=== PATIENT | female | born 1985 | race Caucasian/White ===

== ENCOUNTER 2025-02-15 10:17 | Emergency (ER) | payer OTHER, SELFPAY ==
[2025-02-15 10:22] VITALS: BP 109/69; PULSE 112; RESP 19; TEMP 36.8; O2SAT 98; BMI 21.6
[2025-02-15 11:29] LABS: IDNOW Serial# 55D5AD1C; Strep A Nucleic Acid Negative (Negative)
[2025-02-15 11:33] LABS: Influenza A PCR NEGATIVE (Negative); Influenza B PCR NEGATIVE (Negative); Resp Syncy Virus RNA Qual PCR NEGATIVE (Negative); SARS COV2 PCR INHOUSE NEGATIVE (Negative)
[2025-02-15 12:32] VITALS: BP 119/83; PULSE 94; RESP 19; O2SAT 99
--- NOTE | 2025-02-15 12:34 | ED_ITS ---
HPI - General Adult General Chief complaint: General Medical Stated complaint: sore throat Time Seen by Provider: 02/15/25 12:30 Source: patient, RN notes reviewed and old records reviewed Mode of arrival: ambulatory History of Present Illness ED Provider: Basilia Clark PA-C HPI narrative: 39-year-old female no significant past medical history presenting to the ED complaining of sore throat x2 days. Reports painful swallowing. Denies fever, chills, ear pain, sick contacts, travel Related Data Allergies Allergy/AdvReac Type Severity Reaction Status Date / Time morphine [MORPHINE] Allergy Unknown HIVES Verified 02/15/25 10:23 oxcarbazepine Allergy Unknown HIVES Verified 02/15/25 10:23 [From TRILEPTAL] Review of Systems Review of Systems: Yes all other systems are reviewed and are negative Constitutional: Constitutional: Reports as per [facility] Past Medical History Attestation statement: The following information was validated with the patient. Source: old records reviewed Social History Social History Advance Directives: Yes Advance Directives Information Provided: Yes Advance Directives on File: No Do you have a plan to hurt others: No Plan Physical Exam ED Vital Signs: Vital Signs - 24 hr 02/15/25 10:22 02/15/25 12:32 Temperature 98.3 F Pulse Rate 112 H 94 Respiratory Rate 19 19 Blood Pressure 109/69 119/83 Pulse Oximetry 98 99 Oxygen Delivery Method Room Air BMI result Body Mass Index 21.6 Const General: cooperative, healthy appearing and no acute distress Orientation/consciousness: patient oriented x3 Limitations: no limitations HENMT Head: Yes normal to inspection and Yes atraumatic Ears: hearing grossly normal bilaterally, external ears normal, TM's normal bilaterally and mastoids normal General nose exam: Normal external nose present Face and sinus: Yes normal facial exam Mouth: Normal oral and palatal mucosa present and no drooling Throat: Yes tonsils normal, Yes uvula midline, No peritonsillar mass, Yes posterior oropharynx abnormal (erythematous), No uvula laterally displaced and No uvular edema Eyes General: appearance normal, both eyes and all related structures EOM: EOMs intact bilaterally Neck Neck: Yes normal visual inspection and Yes no meningeal signs Resp Effort & Inspection: normal respiratory effort, no respiratory distress and no stridor Auscultation: no crackles, no rales and no wheezes Cardio Rate: regular rate Skin Rashes: no rashes Wounds: no wounds Neuro General: patient oriented x3, tone normal and no meningeal signs Cranial nerves: Yes CN's II-XII intact bilaterally Gait exam (Neuro): Normal gait present Extrem General: Yes normal to inspection Course Course Course Narrative: -COVID/flu/RSV and rapid strep negative Results discussed with patient including worrisome signs and symptoms and strict return precautions, and when to return to the emergency department. They verbalized understanding and feel safe for discharge at this time. Medical Decision Making Medical Decision Making MDM Narrative: 39-year-old female no significant past medical history presenting to the ED complaining of sore throat x2 days. On exam vital signs stable, NAD, nontoxic appearing, physical exam as noted above with mild posterior oropharyngeal erythema. Uvula midline, no tonsillar swelling/exudates. Talking in complete sentences, handling secretions, no drooling no evidence of [employer]CH[employer]/retropharyngeal abscess. Plan: Rapid strep, viral testing Please refer to course for remaining clinical decision making, interpretation of labs/imaging results, and discussions with consultants and/or family members. Differential Diagnosis Differential Diagnoses: The differential diagnosis associated with the presentation includes As above Admission/Observation Consideration of admission/observation: Escalation of care including admission/observation considered Lab Data [facility] Lab Attestation statement: I reviewed the patient's lab results. Labs: Lab Results 02/15/25 Range/Units 10:33 Influenza Type A (PCR) NEGATIVE (Negative) Influenza Type B (PCR) NEGATIVE (Negative) RSV RNA Qual (PCR) NEGATIVE (Negative) SARS-CoV-2 RNA (RT-PCR) NEGATIVE (Negative) S. pyogenes GrpA MEL Negative (Negative) Radiology Impression Discussion of test interpretation with radiology: I have reviewed the radiologist's reading. External Record Review External record reviewed: Inpatient record, Office record, Outpatient record, Prior outpatient labs, Prior outpatient radiology, Primary care record and Outside ED record Tests considered The following testing was considered but not selected: As above Prescription Management I considered prescription management with: Pain Medication and Antibiotic Chronic Conditions Patient?s care impacted by: Other Social Determinants Patient?s care significantly limited by Social Determinants of Health including: Other Social Determinant of Health Discharge Plan Discharge Clinical Impression: Pharyngitis Patient Disposition: Home, Self-Care Instructions: Pharyngitis (ED) Additional Instructions: you tested negative for COVID/FLU/RSV and strep throat No antibiotics are needed at this time Gargle with warm saltwater. Take Tylenol and ibuprofen for pain Follow up with her doctor If symptoms persist or worsen or pain becomes unbearable, you are unable to eat or drink return to the ED Referrals: Yandel Santiago MD [Primary Care Provider] - 1 week Print Language: Lao
[2025-02-15 12:39] VITALS: BP 119/83; PULSE 94; RESP 19; TEMP 36.6; O2SAT 99
== END 2025-02-15 12:39 | disposition home or self-care (01) ==
PROVIDERS: Emergency Provider Emergency Medicine; PCP Internal Medicine
DX: J02.9 Acute pharyngitis, unspecified (principal); Z03.818 Encounter for observation for suspected exposure to other biological agents ruled out
CPT/HCPCS: 0241U; 87651; 99282; 99283